=== PATIENT | male | born 1985 | race American Indian/Alaskan Native ===

== ENCOUNTER 2020-07-21 14:08 | Emergency (ER) | payer SELFPAY ==
[2020-07-21 14:16] VITALS: BP 124/83
[2020-07-21] MEDS ORDERED: DIPHtheria,PERTUSSIS(ACELL),TETANUS VACCINE/PF 0.5 ML VIAL IM ONE (15:12)
[2020-07-21] MEDS ORDERED: NEOMY 3.5 MG/BACIT 400 UNITS/POLY B 5000 UNITS/GM OINT PACKET TP ONE (15:12)
--- NOTE | 2020-07-21 15:12 | Event Note ---
ED Screening Note ED Screening Note: yesterday had a laceration to the right wrist at 6PM states he was changing a glass car window and it broke able to move the wrist and digits no numbness or weakness no active bleeding PMHx none no allergies to meds tdap unsure This initial assessment/diagnostic orders/clinical plan/treatment(s) is/are subject to change based on patients health status, clinical progression and re- assessment by fellow clinical providers in the ED. Further treatment and workup at subsequent clinical providers discretion. Patient/guardian urged not to elope from the ED as their condition may be serious if not clinically assessed and managed. Initial orders include: XR tdap
--- NOTE | 2020-07-21 15:13 | Emergency Department Report ---
- General Chief Complaint: Wound/Laceration Stated Complaint: RT WRIST LAC Time Seen by Provider: 07/21/20 15:09 Source: patient Mode of arrival: Ambulatory Limitations: No Limitations - History of Present Illness Initial Comments: pt is a 35 yo male who presents to the ED with c/o yesterday had a laceration to the right wrist at 6PM states he was changing a glass car window and it broke able to move the wrist and digits no numbness or weakness no active bleeding PMHx none no allergies to meds tdap unsure - Related Data Previous Rx's Medication Instructions Recorded Last Taken Type Neomycin/Bacitracin/Polymyxinb 1 applicatio TP BID #1 oint...g. 07/21/20 Unknown Rx [Triple Antibiotic Ointment] cephALEXin [Keflex] 500 mg PO QID 7 Days #28 cap 07/21/20 Unknown Rx ED Review of Systems ROS: Stated complaint: RT WRIST LAC Other details as noted in HPI Comment: All other systems reviewed and negative ED Past Medical Hx - Past Medical History Previous Medical History?: No - Surgical History Past Surgical History?: No - Social History Smoking Status: Never Smoker Substance Use Type: None - Medications Home Medications: Home Medications Medication Instructions Recorded Confirmed Last Taken Type Neomycin/Bacitracin/Polymyxinb 1 applicatio TP BID #1 oint...g. 07/21/20 Unknown Rx [Triple Antibiotic Ointment] cephALEXin [Keflex] 500 mg PO QID 7 Days #28 cap 07/21/20 Unknown Rx ED Physical Exam - General Limitations: No Limitations General appearance: alert, in no apparent distress - Head Head exam: Present: atraumatic, normocephalic - Eye Eye exam: Present: normal appearance - ENT ENT exam: Present: mucous membranes moist - Respiratory Respiratory exam: Absent: respiratory distress, accessory muscle use - Neurological Exam Neurological exam: Present: alert, oriented X3 - Psychiatric Psychiatric exam: Present: normal affect, normal mood - Skin Skin exam: Present: warm, dry, other (2 cm irregular laceration present to the right anterior wrist, no active bleeding, is not gaping open, no subcutaneous fat involvement, no muscle/tendon involvement, FROM of the RUE, no snuffbox ttp, no bony ttp, neurovascularly intact) ED Course Vital Signs 07/21/20 14:15 Temperature 97.5 F L Pulse Rate 82 Respiratory 14 Rate Blood Pressure 124/83 O2 Sat by Pulse 96 Oximetry ED Medical Decision Making - Radiology Data Radiology results: report reviewed X-ray right wrist No skeletal abnormality. Volar soft tissue injury/laceration. No radiodense foreign bodies are identified. Radiologist David Rodriguez MD - Medical Decision Making pt is a 35 yo male who presents to the ED with c/o yesterday had a laceration to the right wrist at 6PM states he was changing a glass car window and it broke able to move the wrist and digits no numbness or weakness no active bleeding PMHx none no allergies to meds tdap unsure Vitals are normal. On exam:2 cm irregular laceration present to the right anterior wrist, no active bleeding, is not gaping open, no subcutaneous fat involvement, no muscle/tendon involvement, FROM of the RUE, no snuffbox ttp, no bony ttp, neurovascularly intact. X-ray right wrist: No skeletal abnormality. Volar soft tissue injury/laceration. No radiodense foreign bodies are identified. Patient given tetanus immunization. Wound irrigated with saline and scrubbed with Betadine triple antibiotic and dressing placed by librarian. This laceration occurred almost 24 hours ago, the up-to-date medical literature does not recommend laceration closure greater than 12 hours, due to significant risk for infection. Wound is not gaping open does not need to be approximated. Discussed wound care with patient. Patient given prescription for Keflex and triple antibiotic ointment. Discussed very strict return precautions with patient advised patient to have the area reexamined within 3 days. advised pt Please keep area clean, dry, covered. Please use medication as prescribed. Wash with antibacterial soap and water twice a day and pat dry. No hot tub, no pool, no soaking in water. Showering is fine. Follow-up with a primary care doctor. Return to emergency room for any new or worsening symptoms or any signs of infection. Critical care attestation.: If time is entered above; I have spent that time in minutes in the direct care of this critically ill patient, excluding procedure time. ED Disposition Clinical Impression: Laceration of wrist Qualifiers: Encounter type: initial encounter Laterality: right Qualified Code(s): S61.511A - Laceration without foreign body of right wrist, initial encounter Disposition: TO HOME OR SELFCARE Is pt being admited?: No Does the pt Need Aspirin: No Condition: Stable Instructions: Laceration Care, Adult Additional Instructions: Please keep area clean, dry, covered. Please use medication as prescribed. Wash with antibacterial soap and water twice a day and pat dry. No hot tub, no pool, no soaking in water. Showering is fine. Follow-up with a primary care doctor. Return to emergency room for any new or worsening symptoms or any signs of infection. Prescriptions: cephALEXin [Keflex] 500 mg PO QID 7 Days #28 cap Neomycin/Bacitracin/Polymyxinb [Triple Antibiotic Ointment] 1 applicatio TP BID #1 oint...g. Referrals: PRIMARY CAREMD [Primary Care Provider] - 2-3 Days YRN JOHNS MD [Staff Physician] - 2-3 Days [facility] [Provider Group] - 2-3 Days Time of Disposition: 15:49 Print Language: ANGOLAN
--- NOTE | 2020-07-21 15:48 | XRay Report ---
XR wrist 3+V RT INDICATION: cut by glass. COMPARISON: No relevant prior imaging study available. FINDINGS: No acute skeletal abnormality. There is a focal soft tissue defect along the volar aspect of the wrist. No radiodense foreign bodies . IMPRESSION: 1. Volar soft tissue injury/laceration. No radiodense foreign bodies are identified. Signer Name: David Rodriguez MD Signed: 07/21/2020 3:43 PM Workstation Name: [id number]
== END 2020-07-21 16:28 | disposition home or self-care (01) ==
LOC: ED 14:08
DX: S61.511A Laceration without foreign body of right wrist, initial encounter (principal); Z79.899 Other long term (current) drug therapy; W25.XXXA Contact with sharp glass, initial encounter; Y93.89 Activity, other specified; Y92.89 Other specified places as the place of occurrence of the external cause; Y99.8 Other external cause status
CPT/HCPCS: 12001; 73110; 90471; 90715; 99283; A6250